=== PATIENT | male | born 1965 | race Caucasian/White ===

== ENCOUNTER → 2020-11-19 15:50 | Outpatient (CLI) | payer OTHER, SELFPAY ==
[2020-11-19 14:38] VITALS: BMI 27.8
[2020-11-24 09:47] LABS: PSA, Free 0.86 ng/mL; PSA, Free % 22.6 % (.); PSA, Total Ultrasensitive 3.8 ng/mL (0.0-4.0)
== END ==
PROVIDERS: PCP Internal Medicine; Referring Provider Internal Medicine; Visit Provider Internal Medicine
DX: R97.20 Elevated prostate specific antigen [PSA] (principal)
CPT/HCPCS: 36415; 84153; 84154

== ENCOUNTER → 2022-08-20 | Outpatient (CLI) | payer OTHER, SELFPAY ==
[2022-08-20 07:26] LABS: Absolute Lymphocyte Count 1.97 X10^3/uL (0.83-4.51); Absolute Neutrophil Count 1.9 X10^3/uL (2.0-7.7); Basophil# 0.02 X10^3/uL; Basophil% 0.4 % (0-1); Eosinophil# 0.13 X10^3/uL; Eosinophils% 2.9 % (0-5); Hematocrit 47.9 % (40-54); Lymphocyte # 1.97 X10^3/ul (0.83-4.51); Lymphocyte % 43.9 % (19-41); Mean Corp Hgb Conc 33.4 g/dL (32-36); Mean Corpuscular Hgb 28.8 pg (27.0-32.0); Mean Corpuscular Volume 86.3 fL (80-94); Mean Platelet Vol. 9.7 fl (6.2-12.0); Monocyte# 0.49 X10^3/uL; Monocyte% 10.9 % (0-10); NRBC Flagged by Analyzer 0 % (0-5); Neutrophil # 1.87 X10^3/uL (2.7-7.7); Neutrophil % 41.7 % (47-70); Platelet Count 259 K/mm3 (150-450); RBC Distribution Width CV 12.4 % (11.6-14.6); RBC Distribution Width SD 39.3 fl (35.1-43.9); Red Blood Count 5.55 M/mm3 (4.6-6.2); White Blood Count 4.5 K/mm3 (4.4-11.0)
[2022-08-20 07:44] LABS: ALB/GLOB Ratio 1.2 RATIO (0.9-2.4); AST(SGOT) 15 U/L (15-37); Alanine Aminotransfer ALT/SGPT 23 U/L (16-61); Albumin, Serum 3.8 g/dL (3.2-5.0); Alkaline Phosphatase 79 U/L (45-117); Anion Gap 6 (5-15); BUN 14 mg/dL (7-18); BUN/Creat Ratio 14.3 RATIO (10-20); Calcium,Total 8.6 mg/dL (8.5-10.1); Chloride 109 mmol/L (98-107); Cholesterol 238 mg/dL (200); Creatinine, Serum 0.98 mg/dL (0.70-1.30); EST Glomerular Filtration Rate 84 mL/min (>60); Est Glom Filt Rate - Afr Amer 101 mL/min (>60); Globulin 3.2 g/dL (2.2-4.2); Glucose 112 mg/dL (74-106); High Density Lipoprotein 55 mg/dL; PSA,Total - Annual Screen 6.16 ng/mL (0.00-4.00); Sodium Level 140 mmol/L (136-145); T4 Free Direct 0.91 ng/dL (0.76-1.46); Thyroid Stim Hormone (TSH) 2.56 uIU/mL (0.358-3.74); Triglycerides 188 mg/dL; Very Low Density Lipoprotein 38 mg/dL (5-40)
[2022-08-20 07:56] LABS: Hemoglobin A1c 5.9 % (3.8-5.6)
[2022-08-20 08:00] LABS: Vitamin D,25 Hydroxy 57.2 ng/mL
== END | disposition home or self-care (01) ==
LOC: LAB 06:40
PROVIDERS: PCP Internal Medicine; Referring Provider Internal Medicine; Visit Provider Internal Medicine
DX: R42 Dizziness and giddiness (principal); Z12.5 Encounter for screening for malignant neoplasm of prostate; E55.9 Vitamin D deficiency, unspecified
CPT/HCPCS: 36415; 80053; 80061; 82306; 83036; 84153; 84439; 84443; 84481; 85025; G0103

== ENCOUNTER → 2022-08-30 | Outpatient (CLI) | payer OTHER, SELFPAY ==
--- NOTE | 2022-08-30 06:17 | MRI_ITS ---
STUDY: MRI BRAIN WITH AND WITHOUT CONTRAST REASON FOR EXAM: Male, 57 years old. Speech disturbance, recurrent headaches, dizziness TECHNIQUE: Standardized multiplanar fat and water weighted pulse sequences were obtained. IV 17ml Clariscan was administered for the contrast portion of the examination. COMPARISON: None. FINDINGS: Normal size of the ventricles and extra-axial spaces for the patient''s age. Normal white matter tracts of the supratentorial brain. Normal bilateral basal ganglia. Normal thalami. There is no extra-axial fluid accumulation. Normal flow voids within the major intracranial circulation suggesting patency by spin echo criteria. Normal venous enhancement. There is no enhancing intra-axial or extra-axial abnormality. The dural sinuses are patent. Normal sella turcica, pituitary gland, infundibular stalk, optic chiasm and hypothalamus. Normal tectal plate and pineal gland. Normal midbrain, micky and medulla. Normal cerebellum. Normal basal cisterns. Normal bilateral temporal bones. Normal bilateral internal auditory canals. No demonstrated orbital abnormality, within the constraints of a routine brain study. Normal visualized paranasal sinuses. Normal calvarium and skull base. Normal visualized soft tissue structures. Normal visualized upper cervical spine. MRI/Brain W/WO Contrast IMPRESSION: Normal unenhanced and enhanced MRI of the brain. Electronically Signed: Homer Martinez MD at 8:43 EDT ,
== END | disposition home or self-care (01) ==
LOC: MRI 06:17
PROVIDERS: PCP Internal Medicine; Visit Provider Internal Medicine
DX: R47.9 Unspecified speech disturbances (principal); R51.9 Headache, unspecified; R42 Dizziness and giddiness
CPT/HCPCS: 70553; A9575